=== PATIENT | female | born 1985 | race African-American/Black ===

== ENCOUNTER 2019-07-17 03:38 | Emergency (ER) | payer MEDICAID ==
[~2019-07-17] VITALS: Ht 162.6 cm; Wt 89.4 kg
[2019-07-17 04:17] LABS: Basophils # (auto) 0 uL; Basophils % (auto) 0.2 % (0.0-2.0); Eosinophils # (auto) 0 uL; Eosinophils % (auto) 0.4 % (0.0-7.0); Hematocrit 37.6 % (36.0-46.0); Hemoglobin 12.5 g/dL (12.2-16.2); Lymphocytes % (auto) 21.2 % (10.0-50.0); Mean Corpuscular Hemoglobin 28.4 pg (28.0-32.0); Mean Corpuscular Hgb Conc. 33.1 g/dL (32.0-36.0); Mean Corpuscular Volume 85.8 fL (80.0-100.0); Monocytes % (auto) 7.4 % (0.0-12.0); Neutrophils # (auto) 9.9 uL; Neutrophils % (auto) 70.8 % (37.0-80.0); Platelet Count (auto) 374 10^3/uL (140-450); Red Blood Cells 4.38 10^6/uL (4.0-5.20)
[2019-07-17 04:32] LABS: Urine Bacteria MOD /hpf (None Seen); Urine Blood 2+ /uL (Negative); Urine Hyaline Cast MOD /lpf (0 - 2); Urine Mucus MODERATE (None Seen); Urine Specific Gravity 1.029 (1.001-1.035); Urine WBC 20 /hpf (0 - 5)
[2019-07-17 04:45] LABS: Albumin 3.3 g/dL (3.4-5.0); BUN/Creatinine Ratio 13.9; Calcium 9.3 mg/dL (8.5-10.1); Potassium 3.3 mmol/L (3.5-5.1)
[2019-07-17 04:52] LABS: Bilirubin, Total 0.5 mg/dL (0.2-1.0); Total Protein 8.3 g/dL (6.4-8.2)
[2019-07-17] MEDS: SODIUM CHLORIDE 0.9% 1,000 ML IV ONE (06:55)
[2019-07-17] MEDS: PROMETHAZINE HCL 25 MG/ML 1ML IV ONE (06:55)
[2019-07-17 08:59] VITALS: BP 127/77
[2019-07-17] MEDS: POTASSIUM EFFERVESENT TAB 25 MEQ PO ONE (09:43)
== END 2019-07-17 10:31 | disposition home or self-care (01) ==
LOC: ER 03:44
DX: O23.41 Unspecified infection of urinary tract in pregnancy, first trimester (principal); Z3A.08 8 weeks gestation of pregnancy
CPT/HCPCS: 36415; 76801; 80053; 81001; 84702; 85025; 96361; 96374; 99284; J2550; J7030

== ENCOUNTER 2019-10-22 17:44 | Observation (INO) | payer MEDICAID ==
[~2019-10-22] VITALS: Ht 162.6 cm; Wt 84.4 kg
[2019-10-22] MEDS ORDERED: TERBUTALINE SULFATE 1 MG/ML 1ML VIAL SC ONE (18:42)
[2019-10-22] MEDS ORDERED: TERBUTALINE SULFATE 1 MG/ML 1ML VIAL SC SCH (18:45)
[2019-10-22 19:11] LABS: Urine Bacteria MOD /hpf (None Seen); Urine Blood 1+ /uL (Negative); Urine Mucus FEW (None Seen); Urine Specific Gravity 1.026 (1.001-1.035); Urine WBC 25 /hpf (0 - 5)
== END 2019-10-22 19:33 | disposition home or self-care (01) | DRG 566 ==
LOC: LDRP 17:44
PROVIDERS: ADMIT Specialist; ATTEND Specialist
DX: O36.8120 Decreased fetal movements, second trimester, not applicable or unspecified (principal); Z3A.23 23 weeks gestation of pregnancy
CPT/HCPCS: 59025; 76815; 81001; 81002; 87086; 96372; G0378; J3105

== ENCOUNTER 2020-01-21 10:50 | Observation (INO) | payer MEDICAID ==
[2020-01-21] MEDS ORDERED: PREN-96 PO (12:10)
[2020-01-21 12:28] LABS: Basophils # (auto) 0 10 ^3/uL (0-0.2); Basophils % (auto) 0.2 % (0.0-2.0); Eosinophils # (auto) 0 10 ^3/uL (0-0.8); Eosinophils % (auto) 0.3 % (0.0-7.0); Hematocrit 32.8 % (36.0-46.0); Hemoglobin 10.7 g/dL (12.2-16.2); Lymphocytes # (auto) 1.7 10 ^3/uL (0.4-5.4); Lymphocytes % (auto) 14.8 % (10.0-50.0); Mean Corpuscular Hemoglobin 29.4 pg (28.0-32.0); Mean Corpuscular Hgb Conc. 32.7 g/dL (32.0-36.0); Mean Corpuscular Volume 89.9 fL (80.0-100.0); Monocytes # (auto) 0.7 10 ^3/uL (0-1.3); Monocytes % (auto) 6.4 % (0.0-12.0); Neutrophils # (auto) 9.1 10 ^3/uL (1.6-8.6); Neutrophils % (auto) 78.3 % (37.0-80.0); Platelet Count (auto) 292 10^3/uL (140-450); Red Blood Cells 3.65 10^6/uL (4.0-5.20); Red Cell Distribution Width 13.1 % (11.8-14.3); White Blood Cell 11.6 10^3/uL (4.4-10.8)
[2020-01-21 12:33] LABS: Urine Bacteria NONE SEEN /hpf (None Seen); Urine Blood TRACE /uL (Negative); Urine Mucus FEW (None Seen); Urine Specific Gravity 1.014 (1.001-1.035); Urine WBC 2 /hpf (0 - 5)
[2020-01-21 12:40] LABS: Albumin 2.5 g/dL (3.4-5.0); BUN/Creatinine Ratio 11.8; Calcium 8.5 mg/dL (8.5-10.1); Potassium 3.9 mmol/L (3.5-5.1); Uric Acid 5.9 mg/dL (2.6-6.0)
[2020-01-21 12:42] LABS: INR 0.87 (0.9-1.15); Partial Thromboplastin Time 27.4 sec (23.64-32.05)
[2020-01-21 12:44] LABS: Bilirubin, Total 0.3 mg/dL (0.2-1.0); Total Protein 7.1 g/dL (6.4-8.2)
[2020-01-21 12:58] LABS: Alcohol, Urine < 3.0 mg/dL (0-10); Amphetamine Screen, Urine NEGATIVE (NEGATIVE); Barbiturate Scree,Urine NEGATIVE (NEGATIVE); Benzodiazephine Screen, Urine NEGATIVE (NEGATIVE); Cannabinoid Screen, Urine NEGATIVE (NEGATIVE); Cocaine Screen, Urine NEGATIVE (NEGATIVE); Opiate Scree,Urine NEGATIVE (NEGATIVE); Phencyclidine Screen, Urine NEGATIVE (NEGATIVE)
[2020-01-21] MEDS ORDERED: LACTATED RINGER'S 1,000 ML IV ONE (13:37)
== END 2020-01-21 14:37 | disposition home or self-care (01) | DRG 566 ==
LOC: LDRP 10:50
PROVIDERS: ADMIT Obstetrics & Gynecology; ATTEND Obstetrics & Gynecology
DX: O13.3 Gestational [pregnancy-induced] hypertension without significant proteinuria, third trimester (principal); O62.9 Abnormality of forces of labor, unspecified; Z3A.36 36 weeks gestation of pregnancy
CPT/HCPCS: 36415; 59025; 80053; 80307; 81001; 81002; 83036; 84112; 84550; 85025; 85610; 85730; 86592; 86703; 86762; 86850; 86900; 86901; 87081; 87086; 87340; 87491; 87591; 96360; G0378

== ENCOUNTER 2020-01-23 07:20 | Observation (INO) | payer MEDICAID ==
[~2020-01-23 07:20] MED LIST: PREN-96 PO
[2020-01-23 10:52] LABS: Protein, Urine 29.2 mg/dL (0.0-11.9)
[2020-01-23 10:54] LABS: 24 Hr. Total Protein, Urine 277.4 mg/24 Hr (<149.1)
== END 2020-01-23 11:45 | disposition home or self-care (01) | DRG 566 ==
LOC: LDRP 07:54
PROVIDERS: ADMIT Specialist; ATTEND Specialist
DX: O13.3 Gestational [pregnancy-induced] hypertension without significant proteinuria, third trimester (principal); O62.9 Abnormality of forces of labor, unspecified; Z3A.36 36 weeks gestation of pregnancy
CPT/HCPCS: 59025; 81002; 82570; 84156; G0378

== ENCOUNTER 2020-01-27 08:11 | Observation (INO) | payer MEDICAID ==
[2020-01-27 10:21] LABS: Basophils # (auto) 0 10 ^3/uL (0-0.2); Basophils % (auto) 0.2 % (0.0-2.0); Eosinophils # (auto) 0 10 ^3/uL (0-0.8); Eosinophils % (auto) 0.4 % (0.0-7.0); Hemoglobin 10.4 g/dL (12.2-16.2); Lymphocytes # (auto) 2.2 10 ^3/uL (0.4-5.4); Lymphocytes % (auto) 17.4 % (10.0-50.0); Mean Corpuscular Hemoglobin 30.1 pg (28.0-32.0); Mean Corpuscular Hgb Conc. 33.5 g/dL (32.0-36.0); Mean Corpuscular Volume 89.8 fL (80.0-100.0); Monocytes # (auto) 0.8 10 ^3/uL (0-1.3); Monocytes % (auto) 6.8 % (0.0-12.0); Neutrophils # (auto) 9.3 10 ^3/uL (1.6-8.6); Neutrophils % (auto) 75.2 % (37.0-80.0); Platelet Count (auto) 249 10^3/uL (140-450); Red Blood Cells 3.46 10^6/uL (4.0-5.20); Red Cell Distribution Width 13.4 % (11.8-14.3); White Blood Cell 12.4 10^3/uL (4.4-10.8)
[2020-01-27 10:31] LABS: Urine Bacteria NONE SEEN /hpf (None Seen); Urine Blood TRACE /uL (Negative); Urine Mucus FEW (None Seen); Urine WBC 3 /hpf (0 - 5)
[2020-01-27 10:40] LABS: INR 0.87 (0.9-1.15); Partial Thromboplastin Time 26.8 sec (23.64-32.05)
[2020-01-27 10:46] LABS: Albumin 2.4 g/dL (3.4-5.0); Calcium 8.2 mg/dL (8.5-10.1); Potassium 3.6 mmol/L (3.5-5.1)
[2020-01-27 10:49] LABS: Bilirubin, Total 0.3 mg/dL (0.2-1.0); Total Protein 6.5 g/dL (6.4-8.2)
== END 2020-01-27 11:20 | disposition home or self-care (01) | DRG 566 ==
LOC: LDRP 08:11
PROVIDERS: ADMIT Obstetrics & Gynecology; ATTEND Obstetrics & Gynecology
DX: O13.3 Gestational [pregnancy-induced] hypertension without significant proteinuria, third trimester (principal); O62.9 Abnormality of forces of labor, unspecified; Z3A.37 37 weeks gestation of pregnancy
CPT/HCPCS: 36415; 59025; 76818; 80053; 81001; 81002; 84550; 85025; 85610; 85730; G0378

== ENCOUNTER 2020-01-29 13:13 | Observation (INO) | payer MEDICAID ==
[~2020-01-29] VITALS: Ht 162.6 cm; Wt 85.3 kg
[2020-01-29 15:07] LABS: Protein, Urine 71.6 mg/dL (0.0-11.9)
[2020-01-29 15:12] LABS: 24 Hr. Total Protein, Urine 268.5 mg/24 Hr (<149.1)
[2020-01-29 16:36] LABS: Creatinine Clearance, Urine 47.12 mL/min (75-115)
== END 2020-01-29 15:39 | disposition home or self-care (01) | DRG 566 ==
LOC: LDRP 13:13
PROVIDERS: ADMIT Specialist; ATTEND Specialist
DX: O13.3 Gestational [pregnancy-induced] hypertension without significant proteinuria, third trimester (principal); Z3A.37 37 weeks gestation of pregnancy
CPT/HCPCS: 36415; 59025; 81002; 82565; 82575; 84156; G0378

== ENCOUNTER 2020-02-02 13:56 | Observation (INO) | payer MEDICAID ==
[~2020-02-02] VITALS: Ht 162.6 cm; Wt 84.4 kg
[2020-02-02] MEDS ORDERED: ACYC1CAP23 PO (14:53)
[2020-02-02 16:13] LABS: Basophils # (auto) 0 10 ^3/uL (0-0.2); Basophils % (auto) 0.2 % (0.0-2.0); Eosinophils # (auto) 0 10 ^3/uL (0-0.8); Eosinophils % (auto) 0.2 % (0.0-7.0); Hematocrit 31.8 % (36.0-46.0); Hemoglobin 10.8 g/dL (12.2-16.2); Lymphocytes # (auto) 1.6 10 ^3/uL (0.4-5.4); Lymphocytes % (auto) 16.2 % (10.0-50.0); Mean Corpuscular Hemoglobin 30.3 pg (28.0-32.0); Mean Corpuscular Volume 89.2 fL (80.0-100.0); Monocytes # (auto) 0.4 10 ^3/uL (0-1.3); Monocytes % (auto) 4.4 % (0.0-12.0); Platelet Count (auto) 260 10^3/uL (140-450); Red Blood Cells 3.56 10^6/uL (4.0-5.20); Red Cell Distribution Width 13.6 % (11.8-14.3); White Blood Cell 10.1 10^3/uL (4.4-10.8)
[2020-02-02 16:26] LABS: Albumin 2.6 g/dL (3.4-5.0); Calcium 8.7 mg/dL (8.5-10.1); Potassium 4.1 mmol/L (3.5-5.1); Uric Acid 6.2 mg/dL (2.6-6.0)
[2020-02-02 16:29] LABS: BUN/Creatinine Ratio 11.4; Bilirubin, Total 0.3 mg/dL (0.2-1.0); INR 0.89 (0.9-1.15); Partial Thromboplastin Time 26.4 sec (23.64-32.05); Total Protein 7.1 g/dL (6.4-8.2)
[2020-02-02] MEDS ORDERED: LABETALOL HCL 200 MG TAB PO ONE (17:45)
== END 2020-02-02 21:00 | disposition home or self-care (01) | DRG 566 ==
LOC: LDRP 13:56
PROVIDERS: ADMIT Specialist; ATTEND Specialist
DX: O13.3 Gestational [pregnancy-induced] hypertension without significant proteinuria, third trimester (principal); Z3A.37 37 weeks gestation of pregnancy
CPT/HCPCS: 36415; 59025; 76818; 80053; 81002; 84550; 85025; 85610; 85730; G0378

== ENCOUNTER 2020-02-04 07:45 | Observation (INO) | payer MEDICAID ==
[~2020-02-04] VITALS: Ht 30.5 cm; Wt 0.5 kg
[~2020-02-04 07:45] MED LIST changes: +ACYC1CAP23 PO
[2020-02-04] MEDS ORDERED: LABE100T4 PO (09:33)
[2020-02-04 10:33] LABS: Basophils # (auto) 0 10 ^3/uL (0-0.2); Basophils % (auto) 0.3 % (0.0-2.0); Eosinophils # (auto) 0 10 ^3/uL (0-0.8); Eosinophils % (auto) 0.4 % (0.0-7.0); Hematocrit 31.4 % (36.0-46.0); Hemoglobin 10.5 g/dL (12.2-16.2); Lymphocytes # (auto) 1.6 10 ^3/uL (0.4-5.4); Mean Corpuscular Hemoglobin 30.2 pg (28.0-32.0); Mean Corpuscular Hgb Conc. 33.5 g/dL (32.0-36.0); Monocytes # (auto) 0.6 10 ^3/uL (0-1.3); Monocytes % (auto) 7.1 % (0.0-12.0); Neutrophils # (auto) 6.2 10 ^3/uL (1.6-8.6); Neutrophils % (auto) 73.2 % (37.0-80.0); Nucleated Red Blood Cells % 0.1 %; Platelet Count (auto) 246 10^3/uL (140-450); Red Blood Cells 3.49 10^6/uL (4.0-5.20); Red Cell Distribution Width 13.8 % (11.8-14.3); White Blood Cell 8.5 10^3/uL (4.4-10.8)
[2020-02-04] MEDS ORDERED: LABETALOL HCL 200 MG TAB PO ONE ×2 (10:45→12:15)
[2020-02-04 10:46] LABS: Protein, Urine 61.7 mg/dL (0.0-11.9)
[2020-02-04 10:50] LABS: INR 0.86 (0.9-1.15); Partial Thromboplastin Time 25.2 sec (23.64-32.05)
[2020-02-04] MEDS ORDERED: LABE200T6 PO (10:52)
[2020-02-04 11:09] LABS: 24 Hr. Total Protein, Urine 555.3 mg/24 Hr (<149.1)
[2020-02-04 11:19] LABS: Calcium 8.8 mg/dL (8.5-10.1); Potassium 3.9 mmol/L (3.5-5.1)
[2020-02-04 11:25] LABS: Albumin 2.4 g/dL (3.4-5.0); Bilirubin, Total 0.4 mg/dL (0.2-1.0); Uric Acid 6.3 mg/dL (2.6-6.0)
[2020-02-04 11:47] LABS: Alcohol, Urine < 3.0 mg/dL (0-10); Amphetamine Screen, Urine NEGATIVE (NEGATIVE); Barbiturate Scree,Urine NEGATIVE (NEGATIVE); Benzodiazephine Screen, Urine NEGATIVE (NEGATIVE); Cannabinoid Screen, Urine NEGATIVE (NEGATIVE); Cocaine Screen, Urine NEGATIVE (NEGATIVE); Opiate Scree,Urine NEGATIVE (NEGATIVE); Phencyclidine Screen, Urine NEGATIVE (NEGATIVE)
[2020-02-04 12:39] LABS: Creatinine Clearance, Urine 84.46 mL/min (75-115)
[2020-02-05 07:07] LABS: RPR Non Reactive (Non Reactive)
== END 2020-02-04 12:39 | disposition home or self-care (01) | DRG 861 ==
LOC: LDRP 07:45
PROVIDERS: ADMIT Specialist; ATTEND Specialist
DX: Z03.818 Encounter for observation for suspected exposure to other biological agents ruled out (principal); O13.3 Gestational [pregnancy-induced] hypertension without significant proteinuria, third trimester; O62.9 Abnormality of forces of labor, unspecified; Z3A.38 38 weeks gestation of pregnancy; Z87.891 Personal history of nicotine dependence
CPT/HCPCS: 36415; 59025; 80053; 80307; 81002; 82575; 84112; 84156; 84550; 85025; 85610; 85730; 86592; 86850; 86900; 86901; G0378; U0003

== ENCOUNTER 2020-02-05 07:46 | Inpatient (IN) | payer MEDICAID ==
[2020-02-05] VITALS (12 sets, daily range): BP systolic 122–154; BP diastolic 73–90
[~2020-02-05] VITALS: Ht 162.6 cm; Wt 81.6 kg
[~2020-02-05 07:46] MED LIST changes: +LABE200T6 PO
[2020-02-05 08:48] LABS: Urine Bacteria MOD /hpf (None Seen); Urine Blood 1+ /uL (Negative); Urine Mucus FEW (None Seen); Urine Specific Gravity 1.026 (1.001-1.035); Urine WBC 52 /hpf (0 - 5)
[2020-02-05] MEDS: LACTATED RINGER'S 1,000 ML IV SCH ×3 (09:01→12:31)
[2020-02-05] MEDS ORDERED: TETRACAINE 1% INJ 2 ML VIAL IJ ONE (11:31)
[2020-02-05] MEDS ORDERED: ONDANSETRON HCL 4 MG/2 ML VIAL ONE (11:53)
[2020-02-05] MEDS ORDERED: MORPHINE SULF(PF) 0.5MG/ML 10ML VIAL ONE (11:53)
[2020-02-05] MEDS ORDERED: SODIUM CHLORIDE LOCK 10 ML ONE (11:53)
[2020-02-05] MEDS ORDERED: oxyTOCIN 10 UNIT/ML 10ML VIAL ONE (11:53)
[2020-02-05] MEDS ORDERED: fentaNYL CITRATE 100 MCG/2 ML VL ONE (11:53)
[2020-02-05] MEDS ORDERED: ceFAZolin 1GM VL ONE (11:53)
[2020-02-05] MEDS ORDERED: MIDAZOLAM HCL 1MG/1ML-2 ML VIAL ONE (11:53)
[2020-02-05] MEDS ORDERED: EPINEPHrine HCL 1 MG/1 ML AMP ONE (11:56)
[2020-02-05] MEDS ORDERED: LACTATED RINGER'S 1,000 ML IV SCH (14:21)
[2020-02-05] MEDS ORDERED: HYDROmorphone HCL 2 MG/ML VL IV PRN (14:30)
[2020-02-05] MEDS ORDERED: ACETAMINOPHEN IV 1000 MG/100ML (10MG/ML) IV PRN (14:30)
[2020-02-05] MEDS ORDERED: ONDANSETRON HCL 4 MG/2 ML VIAL IV PRN (14:30)
[2020-02-05] MEDS ORDERED: ceFAZolin 1GM/50ML 50 ML IV SCH (14:30)
[2020-02-05] MEDS ORDERED: METOCLOPRAMIDE HCL 5MG/ml INJ 2ml VIAL IV PRN (14:30)
[2020-02-05] MEDS ORDERED: fentaNYL CITRATE 100 MCG/2 ML VL IV PRN (14:30)
[2020-02-05] MEDS ORDERED: diphenhdrAMINE HCL 50 MG/1 ML VL IV PRN (14:30)
[2020-02-05] MEDS ORDERED: MORPHINE SULFATE 4 MG/ML SYR/VIAL IV PRN (14:30)
[2020-02-05] MEDS ORDERED: KETOROLAC TROMETH 30 MG/ML 1ML VIAL IV ONE (14:30)
[2020-02-05] MEDS ORDERED: NALOXONE HCL 0.4 MG/ML VIAL IV PRN (14:30)
--- NOTE | 2020-02-05 14:40 | NUR ---
Received PT to room 108B from PACU via bed in stable condition. Assessment performed at this time, lochia noted to be scant and fundus 1 above U, light in place draining at bedside with blood tinged urine, PT given instructions on IS and gave return demonstration, SCD's in place
[2020-02-05] MEDS: HYDROmorphone HCL 2 MG/ML VL IV PRN ×2 (15:08→20:41)
--- NOTE | 2020-02-05 17:42 | NUR ---
Pericare Pericare performed at this time with scant bleeding, new pad placed
[2020-02-05] MEDS: ceFAZolin 1GM/50ML 50 ML IV SCH (20:34)
--- NOTE | 2020-02-05 21:37 | NUR ---
SBAR GIVEN TO BRIAN. BLOOD PRESSURE TREND REVIEWED. PAIN REVIEWED. ORDERS RECEIVED FOR LABETALOL AND TORADOL. BAZAN OUTPUT AND COLOR REVIEWED. ORDERS RECEIVED TO LEAVE BAZAN IN FOR 24 HOURS AFTER DELIVERY.
[2020-02-05] MEDS: LABETALOL HCL 200 MG TAB PO SCH (22:19)
[2020-02-06] VITALS (10 sets, daily range): BP systolic 129–146; BP diastolic 77–93
[2020-02-06] MEDS: KETOROLAC TROMETH 30 MG/ML 1ML VIAL IV PRN ×2 (01:48→08:10)
--- NOTE | 2020-02-06 02:19 | NUR ---
Ambulation: Patient OOB with standby assistance by RN to chair at bedside. Pericare teaching provided. Clean gown provided and bed linen changed. Patient ambulated back to bed with steady gait and no distress noted with RN by side. pt incision is open to air and intact with no signs of drainage noted. 19 isabel in tact.
[2020-02-06] MEDS: ceFAZolin 1GM/50ML 50 ML IV SCH ×2 (04:30→13:19)
[2020-02-06] MEDS ORDERED: ALUM & MAG HYDROX-SIMETH LIQ(MAALOX) 30 ML PO PRN (06:45)
[2020-02-06 07:48] LABS: Basophils # (auto) 0 10 ^3/uL (0-0.2); Basophils % (auto) 0.3 % (0.0-2.0); Eosinophils # (auto) 0.1 10 ^3/uL (0-0.8); Eosinophils % (auto) 0.6 % (0.0-7.0); Hematocrit 27.1 % (36.0-46.0); Hemoglobin 9.1 g/dL (12.2-16.2); Lymphocytes # (auto) 1.1 10 ^3/uL (0.4-5.4); Mean Corpuscular Hemoglobin 30.4 pg (28.0-32.0); Mean Corpuscular Hgb Conc. 33.6 g/dL (32.0-36.0); Mean Corpuscular Volume 90.6 fL (80.0-100.0); Monocytes # (auto) 0.6 10 ^3/uL (0-1.3); Monocytes % (auto) 5.3 % (0.0-12.0); Neutrophils # (auto) 8.7 10 ^3/uL (1.6-8.6); Neutrophils % (auto) 82.8 % (37.0-80.0); Platelet Count (auto) 215 10^3/uL (140-450); Red Blood Cells 2.99 10^6/uL (4.0-5.20); Red Cell Distribution Width 13.8 % (11.8-14.3); White Blood Cell 10.5 10^3/uL (4.4-10.8)
--- NOTE | 2020-02-06 08:15 | NUR ---
Light catheter dc'd Order to discontinue light catheter. Light dc'd with clean technique following deflation of balloon. Patient tolerated well with no complaints of pain. Continue care.
--- NOTE | 2020-02-06 09:30 | NUR ---
PT ambulates with standby assistance to bathroom. PT able to void 600ml. Lashanda care performed. No signs of distress.
[2020-02-06] MEDS: LABETALOL HCL 200 MG TAB PO SCH ×2 (10:52→21:39)
[2020-02-06] MEDS: LACTATED RINGER'S 1,000 ML IV SCH ×2 (11:08→16:16)
[2020-02-06] MEDS ORDERED: SIMETHICONE 80 MG CHEWABLE TABLET PO PRN (11:45)
[2020-02-06] MEDS: HYDROcodone-ACET 5/325MG TAB PO PRN ×2 (13:19→20:50)
--- NOTE | 2020-02-06 16:13 | NUR ---
Dr. Zazueta called and notified of PT's current BP's 141/84 P81, 146/92 P81. Received order for Procardia XL 30mg PO daily.
[2020-02-06] MEDS: IBUPROFEN 800 MG TAB PO PRN (16:26)
[2020-02-06] MEDS: DOCUSATE SOD 100 MG CAP PO SCH (21:39)
[2020-02-07] MEDS: HYDROcodone-ACET 5/325MG TAB PO PRN ×4 (01:22→20:38)
[2020-02-07 03:00] VITALS: BP 130/71
[2020-02-07 06:58] VITALS: BP 127/71
[2020-02-07] MEDS: DOCUSATE SOD 100 MG CAP PO SCH ×2 (10:06→21:35)
[2020-02-07] MEDS: LABETALOL HCL 200 MG TAB PO SCH ×2 (10:06→21:36)
[2020-02-07] MEDS: IBUPROFEN 800 MG TAB PO PRN ×3 (10:10→17:53)
[2020-02-07 11:00] VITALS: BP 133/89
[2020-02-07 15:00] VITALS: BP 137/70
[2020-02-07] MEDS ORDERED: NIFEdipine ER 30 MG TAB PO SCH ×2 (16:00)
[2020-02-07 18:45] VITALS: BP 135/90
[2020-02-07] MEDS ORDERED: BISACODYL 10 MG RECT SUPP PR PRN (20:30)
[2020-02-07 22:49] VITALS: BP 135/93
[2020-02-08] MEDS: IBUPROFEN 800 MG TAB PO PRN ×2 (01:24→09:29)
[2020-02-08] MEDS: HYDROcodone-ACET 5/325MG TAB PO PRN ×2 (03:26→07:16)
[2020-02-08 03:30] VITALS: BP 144/88
[2020-02-08] MEDS ORDERED: TETANUS-DIPTH-ACEL PERTUSSIS 0.5ML SYR Tdap IM ONE (04:15)
[2020-02-08 07:08] VITALS: BP 145/84
--- NOTE | 2020-02-08 07:42 | NUR ---
Discharge: Discharge instructions given as ordered. Pt encouraged to follow up with [facility] as instructed. All questions and concerns addressed. Patient verbalized understanding. Medication reconciliation completed and copy given to patient. All required/requested vaccines given and copies of vaccinations given to patient.
--- NOTE | 2020-02-08 08:41 | NUR ---
Dr. Dayton olmos on patient Orders received to Call in Labetelol 300 mg to be taken BID vitamin daily Iron 325 mg daily Called [facility] pharmacy , spoke to Victoria. Addendum: 02/08/20 at 0844 by Osiris Denton RN Amended: Links added.
--- NOTE | 2020-02-08 08:46 | NUR ---
IV removal IV DC'd with sterile technique, catheter fully intact. Pressure dressing applied to site. Patient tolerated procedure well. Discharged with aftercare instructions per MD. NOTE:
--- NOTE | 2020-02-08 09:01 | NUR ---
[place] removed/ Removed isabel using clean technique as ordered for discharge. isabel removed and steri strips. Patient tolerated well.
[2020-02-08] MEDS: DOCUSATE SOD 100 MG CAP PO SCH (09:29)
[2020-02-08] MEDS: LABETALOL HCL 200 MG TAB PO SCH (09:30)
[2020-02-08 10:30] VITALS: BP 148/81
--- NOTE | 2020-02-08 10:50 | NUR ---
Discharge: Patient taken to vehicle via wheelchair with all personal belongings, accompanied by staff and family member. No distress noted at time of departure, no adverse changes in status since initial assessment.
== END 2020-02-08 10:50 | disposition home or self-care (01) | DRG 540 ==
LOC: LDRP 07:46
PROVIDERS: ADMIT Specialist; ATTEND Specialist
PROC: 3E0234Z Introduction of Serum, Toxoid and Vaccine into Muscle, Percutaneous Approach (ICD-10-PCS; 2020-02-05)
PROC: 10D00Z1 Extraction of Products of Conception, Low, Open Approach (ICD-10-PCS; principal; 2020-02-05 12:46)
DX: O69.81X0 Labor and delivery complicated by cord around neck, without compression, not applicable or unspecified (principal); O99.824 Streptococcus B carrier state complicating childbirth; Z3A.38 38 weeks gestation of pregnancy; Z37.0 Single live birth; Z23 Encounter for immunization; O14.94 Unspecified pre-eclampsia, complicating childbirth
CPT/HCPCS: 36415; 59025; 81001; 85025; 90715; 96360; 96361; 96366; 96374; 96375; G0378; J0131; J0171; J0690; J1885; J2250; J2405; J2590

== ENCOUNTER 2021-01-01 00:26 | Emergency (ER) | payer MEDICAID | END 2021-01-01 00:40 | disposition left against medical advice (07) | LOC: ER 00:26 | DX: Z53.21 Procedure and treatment not carried out due to patient leaving prior to being seen by health care provider (principal) ==

== ENCOUNTER 2021-01-26 10:23 | Emergency (ER) | payer MEDICAID ==
[~2021-01-26] VITALS: Ht 165.1 cm; Wt 86.2 kg
[2021-01-26 11:05] VITALS: BP 135/75
== END 2021-01-26 11:30 | disposition home or self-care (01) ==
LOC: ER 10:23
DX: J06.9 Acute upper respiratory infection, unspecified (principal); R05 Cough; R09.81 Nasal congestion

== ENCOUNTER 2023-04-08 02:29 | Emergency (ER) | payer MEDICAID ==
[~2023-04-08] VITALS: Ht 165.1 cm; Wt 82.3 kg
[~2023-04-08 02:29] MED LIST changes: -ACYC1CAP23 PO; +ACYC200C22 PO
[2023-04-08 02:56] VITALS: O2SAT 100
[2023-04-08 03:31] VITALS: BP 159/93; PULSE 83; RESP 18; TEMP 98.6
[2023-04-08] MEDS ORDERED: HYDR-4902 PO (03:33)
== END 2023-04-08 04:01 | disposition home or self-care (01) ==
LOC: ER 02:29
DX: N63.10 Unspecified lump in the right breast, unspecified quadrant (principal)

== ENCOUNTER 2023-11-18 01:17 | Emergency (ER) | payer MEDICAID ==
[~2023-11-18] VITALS: Ht 162.6 cm; Wt 90.4 kg
[~2023-11-18 01:17] MED LIST changes: +HYDR-4902 PO; +LABE200T10 PO; -LABE200T6 PO
[2023-11-18 01:41] VITALS: BP 146/87; PULSE 104; RESP 17; O2SAT 98
[2023-11-18] MEDS ORDERED: HYDR-4902 PO (04:08)
[2023-11-18] MEDS ORDERED: DexAMETHasone 4 MG TAB PO ONE (04:15)
[2023-11-18] MEDS: HYDROcodone-ACET 5/325MG TAB PO ONE (04:15)
== END 2023-11-18 07:16 | disposition home or self-care (01) ==
LOC: ER 01:17
DX: S83.91XA Sprain of unspecified site of right knee, initial encounter (principal); M25.461 Effusion, right knee; W18.09XA Striking against other object with subsequent fall, initial encounter; Y93.89 Activity, other specified; Y92.89 Other specified places as the place of occurrence of the external cause; Y99.8 Other external cause status
CPT/HCPCS: 29505; 73562